=== PATIENT | male | born 1950 | race Caucasian/White ===

== ENCOUNTER 2018-03-14 02:14 | Inpatient (IN) | payer OTHER, MEDICARE ==
[~2018-03-14] VITALS: Ht 170.2 cm; Wt 95.3 kg
[~2018-03-14 02:14] MED LIST: ATENOLOL25 M1 PO; LISINOPRIL-HCT1 EAC2 PO; METFORMIN HCL500 M4 PO
[2018-03-14 11:04] LABS: ABSOLUTE BASOPHIL COUNT 0 /CUMM (0.0-0.2); ABSOLUTE EOSINOPHIL COUNT 0.1 /CUMM (0.0-0.7); ABSOLUTE LYMPH COUNT 0.9 /CUMM (1.2-3.4); ABSOLUTE MONOCYTE COUNT 0.9 /CUMM (0.10-0.60); BASOPHIL % 0.6 % (0.0-2.0); EOSINOPHIL % 2.2 % (0-5); HEMATOCRIT 45.1 % (42-52); MEAN CORPUSCULAR HGB 32.3 PG (27.0-31.0); MEAN CORPUSCULAR HGB CONC 34.8 G/DL (33.0-37.0); MEAN CORPUSCULAR VOLUME 93.1 FL (80.0-94.0); MEAN PLATELET VOLUME 8.6 FL (7.4-10.4); PLATELET COUNT 231 /CUMM (130-400); RBC DISTRIBUTION WIDTH 12.5 % (11.5-14.5); RED BLOOD CELL CT 4.85 /CUMM (4.70-6.10); WHITE BLOOD CELL COUNT 5.9 /CUMM (4.8-10.8)
--- NOTE | 2018-03-14 16:56 | Admission Core Measures ---
Acute Coronary Syndrome (CM) ACS Core Measures Acute Coronary Syndrome Diagnosis Yes Congestive Heart Failure (NEW) CHF Core Measures Congestive Heart Failure Diagnosis Yes Cerebrovascular Accident (NEW) CVA Core Measures CVA/TIA Diagnosis Yes Venous Thromboembolism VTE Core Doug (View Protocol) VTE Risk Factors Surgery No Mechanical VTE Prophylaxis d/t N/A MechProphylax Ordered No VTE Pharm Prophylaxis d/t NA PharmProphylax ordered Problem List As ranked by this Provider includes Assessment & Plan 1. Colon cancer HOME MEDS Home Med List Atenolol 25 MG TABLET 1 TAB PO DAILY HTN (Reported) Lisinopril/Hydrochlorothiazide (Lisinopril-Hctz 10-12.5 MG Tab) 10 MG-12.5 MG TABLET 1 TAB PO DAILY HTN (Reported) Metformin HCl (Metformin HCl ER) 500 MG TAB.ER.24H 1 TAB PO DAILY DM ( Reported)
[2018-03-14 18:30] VITALS: BP 114/62
--- NOTE | 2018-03-14 19:45 | PN- General Surgery ---
Subjective Subjective: POC feeling well, pain well controlled, awating some clear liquids, some belching, no n/v. no flatus/bm. no oob. Objective Vital Signs and I&Os Vital Signs Date Time Temp Pulse Resp B/P B/P Pulse O2 O2 Flow FiO2 Mean Ox Delivery Rate 03/14 1830 97.6 63 18 114/62 92 Nasal 2.0L Cannula Physical Exam: gen- nad card0 s1s2 rrr pulm- ctab abd- soft, ttp, distended, incisions cdi w glue, island dressing on midline- scant bloody staining. quiet bs ext- calves soft nt bl, alps on Assessment/Plan Assessment/Plan A- POD0 sp robotic LAR for colon ca, stable. P- eras clrs, ?aat tomorrow ivf at 73 [address], richie 6am neurontin atc po tylenol atc prn po oxy, iv morphine for breakthrough hep sq, alps oob, ambualte ist, titrate o2 off am labs dc planning Core Measures Venous Thromboembolism VTE Risk Factors Surgery No Mechanical VTE Prophylaxis d/t N/A MechProphylax Ordered No VTE Pharm Prophylaxis d/t NA PharmProphylax ordered
[2018-03-14 20:00] VITALS: BP 136/70
[2018-03-14 20:30] VITALS: BP 116/70
[2018-03-14 22:30] VITALS: BP 136/74
[2018-03-15 00:32] VITALS: BP 110/70
[2018-03-15 06:06] VITALS: BP 110/72
[2018-03-15 07:26] VITALS: BP 130/80
--- NOTE | 2018-03-15 07:34 | PN- General Surgery ---
Surgical Brief Attending Note Brief Attending Note: Patient with no complaints this morning She is passing flatus and has been tolerating clears Abdomen is soft Vital signs were stable overnight Labs not back yet Impression: Looks well postop day 1 from robotic colon resection Plan: Progress per PILAR Jefferson out, DC IV fluids, full liquid diet this morning and advance diet as tolerated to a low fiber
[2018-03-15 08:50] LABS: ABSOLUTE BASOPHIL COUNT 0 /CUMM (0.0-0.2); ABSOLUTE EOSINOPHIL COUNT 0 /CUMM (0.0-0.7); ABSOLUTE LYMPH COUNT 0.4 /CUMM (1.2-3.4); BASOPHIL % 0.1 % (0.0-2.0); EOSINOPHIL % 0 % (0-5)
[2018-03-15 08:55] LABS: ABSOLUTE GRANULOCYTE CT 8.2 /CUMM (1.4-6.5); ABSOLUTE MONOCYTE COUNT 0.9 /CUMM (0.10-0.60); MEAN CORPUSCULAR HGB 32.5 PG (27.0-31.0); MEAN CORPUSCULAR HGB CONC 34.7 G/DL (33.0-37.0); MEAN CORPUSCULAR VOLUME 93.8 FL (80.0-94.0); MEAN PLATELET VOLUME 10.1 FL (7.4-10.4); PLATELET COUNT 185 /CUMM (130-400); RBC DISTRIBUTION WIDTH 12.5 % (11.5-14.5); RED BLOOD CELL CT 4.13 /CUMM (4.70-6.10)
[2018-03-15 08:56] LABS: WHITE BLOOD CELL COUNT 9.6 /CUMM (4.8-10.8)
[2018-03-15 08:57] LABS: HEMATOCRIT 38.8 % (42-52)
[2018-03-15 09:14] LABS: GRANULOCYTE % 85.7 % (42.2-75.2)
--- NOTE | 2018-03-15 09:50 | Patient Discharge Instructions ---
Discharge Instructions General Discharge Information You were seen/treated for: Colon cancer You had these procedures: Robotic lower anterior rescetion on 03/15/18 Watch for these problems: Increased pain, distenstion, fever > 101.3, chills, nausea, vomiting, redness, swelling, drainage from your incisions Call Surgeon to remove: Norma No bath, but you may shower: Yes Other wound care: Keep incisions clean an dry Ok to remove dressing in 2 days No ointments or lotions on incisions Special Instructions: Call to schedule a follow up appointment with Dr. Lorenzo in 10-14 days or sooner with concerns. Diet Continue normal diet: No Recommended Diet: Low Residue Activity Full Activity/No Limits: No Activity Self Limited: Yes Pounds, do NOT lift more than: 10 (x 4 weeks) Other activity limits: No heavy lifting or strenous activity for 4 weeks Acute Coronary Syndrome Inclusion Criteria At DC or during hospital stay patient has or had the following: ACS DIAGNOSIS No Discharge Core Measures Meds if any: Prescribed or Continued at Discharge Meds if any: NOT Prescribed or Continued at Discharge Congestive Heart Failure Inclusion Criteria At DC or during hospital stay patient has or had the following: CHF DIAGNOSIS No Discharge Core Measures Meds if any: Prescribed or Continued at Discharge Meds if any: NOT Prescribed or Continued at Discharge Cerebrovascular accident Inclusion Criteria At DC or during hospital stay patient has or had the following: CVA/TIA Diagnosis No Discharge Core Measures Meds if any: Prescribed or Continued at Discharge Meds if any: NOT Prescribed or Continued at Discharge Venous thromboembolism Inclusion Criteria VTE Diagnosis No VTE Type NONE VTE Confirmed by (Test) NONE Discharge Core Measures - Per Current guidelines, there needs to be overlap - treatment for the first 5 days of Warfarin therapy. - If discharged on Warfarin prior to 5 days of - overlap therapy, the patient will need to be - assessed for post discharge needs including - *Post discharge parental anticoagulation - *Warfarin and/or parental anticoagulation education - *Follow up date to check INR post discharge At least 5 days overlap therapy as Inpatient No Meds if any: Prescribed or Continued at Discharge Note: Overlap Therapy is Warfarin and Anticoagulant Meds if any: NOT Prescribed or Continued at Discharge
--- NOTE | 2018-03-15 09:54 | Surg Short-stay <48hrs Dis Sum ---
Visit Information Visit Dates Admission Date: 03/14/18 Discharge Date: 03/16/18 Surgical Short Stay DC Summary Admission Diagnosis: Colon cancer Final Diagnosis: S/p robotic lower anterior resection Procedure(s): Robotic LAR on 03/14/18 Summary/Significant Findings: Patient presented for an elective robotic lower anterior resection for sigmoid colon cancer with Dr. Lorenzo. ERAS protocol initiated preop and followed postop. Diet was advanced and tolerated with return or bowel function. He voided spontanously and pain was controlled with oral analgesics. He is medically stable for discharge. Condition at Discharge: Stable Discharge Disposition: home or self care Discharge instructions provided to patient/family: Yes Post discharge follow-up plan: 10-[address] Lorenzo Copies to: Yuly BLACKBURN,Yonis Villanueva
[2018-03-15 11:05] VITALS: BP 126/80
[2018-03-15 13:50] VITALS: BP 120/60
--- NOTE | 2018-03-15 14:10 | Operative Report ---
Operative/Inv Procedure Report Surgery Date: 03/14/18 Name of Procedure: 1. Robototic low anterior resection 2. Rigid sigmoidoscopy to assess anastomosis integrity Pre-Operative Diagnosis: Sigmoid colon cancer Post-Operative Diagnosis: Sigmoid colon cancer Estimated Blood Loss: less than 50ml Surgeon/Toll Line Inspector: Daren Lorenzo Jr., DO Anesthesia: general endotracheal tube, block Monitors: Per routine Drains: None Specimens: 1. Rectosigmoid 2. Stapler doughnut as proximal surgical margin 3. The stapler doughnut as distal surgical margin Complications: None Condition: Good Operative Indication: This is a 67-year-old gentleman has had colonoscopies found to have a sigmoid colon cancer. This was I see proven to be an adenocarcinoma. A tattoo was performed at the time of the colonoscopy. During his preop metastatic workup he was noted to have a mass in the left kidney. He was referred to both oncology and urology. It was felt this is likely a second primary cancer. We initially discussed doing a combined urologic and colorectal procedure. After careful consideration discussion with the patient and his oncologist, sided to take a staged approach and addressed the colon cancer first Operative/Procedure Note Note: On the day before his procedure he did a bowel prep at home including oral laxatives and oral antibiotics. He presented to [facility] and in the holding area received premedication as part of our ERAS protocol. He was taken to the operating room he received IV antibiotics. He was placed in the supine position on the operating room table. He underwent induction of general anesthesia placement of endotracheal tube and Jefferson catheter. He underwent bilateral tap blocks at the anesthesia department. Converted to lithotomy position in Charles stirru and secured to the bed with both arms tucked. The abdomen was prepped and draped in usual fashion. We gained access to the abdominal cavity using a Veress needle technique. The Veress needle was inserted in the midclavicular line just subcostal on the left in the abdomen was insufflated to 15 mmHg. The robotic ports were then placed in a line drawn between the xiphoid process in the right lower quadrant. The #123 ports were 8 mm ports. The #4 port was a 12 mm port. In addition an 8 mm Versaport was placed in right lower quadrant for the school health assistant port. Laparoscopic expiration of the abdominal cavity was performed I could see the tattoo in the mid sigmoid colon and there was no other abnormalities noted. The patient was placed in Trendelenburg right side down and then the robot was docked. There was some abnormal adhesions between the sigmoid colon and the left lower quadrant taken down flexure cautery and by sharp dissection to reestablish normal anatomic relationships. The colon was grasped and elevated to his anterior abdominal wall incised peritoneum at the sacral promontory to the right of the rectosigmoid. I entered the posterior rectal avascular space and did a medial lateral dissection until the left ureter and iliac vessels were identified. I developed a space posteriorly till I was about to the midportion of the rectum. The lateral [place] were then partly taken down on the right and on the left using the vessel sealer. He inferior mesenteric vascular pedicle was identified. The vessels were then skeletonized partly with electrocautery and partly with a vessel sealer. The pedicle was fairly large so a robotic PAOLO stapler with white load was used to divide the pedicle. The pedicle was divided beyond the takeoff of the left colic vessels and the divided vascular structures were completely hemostatic. Next I took down the white line of Toldt's with a robotic jerod working retrograde back towards the splenic flexure but I did not need to completely mobilize the flexure. I chose my distal site of transection at the rectosigmoid the mesorectum was cleared here with combination electrocautery and robotic vessel sealing. Once the rectal wall was exposed a robotic PAOLO stapler was used to divide the bowel. This was a 45 mm blue loaded stapler. At this point the end of the transected bowel was grasped the pneumoperitoneum was let down and the robot was undocked. The median extraction incision just infraumbilically this which was about 6 cm in length. A wound protector was placed through the incision and the bowel was easily extracted through this wound protector. I chose my proximal site of transection cleared the mesentery here with electrocautery and the larger vessels were ligated and divided with 2-0 Vicryl suture. I sharply divided the bowel and the specimen was removed from the field. A stitch was placed on the distal. A 28 EEA stapler was chosen for the anastomosis a hand sewn pursestring was performed with 2-0 Prolene suture. The anvil of the EEA stapler was placed into the lumen of the bowel and the pursestring was tied snugly around the PEG of the anvil. The bowel was reduced back into the abdominal cavity Was placed on the wound protector. The abdomen was reinsufflated 50 mmHg and then once again the bowel swept out of the pelvis. The EEA sizers then the EEA stapler passed transanally. Once the stapler was in the appropriate position the spike was advanced and the 2 ends of the stapling device were mated. He made sure there was no twisting in the colon or the colon mesentery. The stapler was completely closed and allowed to settle for 30 seconds. Table was armed, fired, opened and retrieved. The pelvis was filled with sterile saline and the bowel was gently occluded proximal to the anastomosis. Sigmoidoscopy was performed and there was no air leak at the anastomosis . Staple line appeared sound without bleeding. The fluid was aspirated out of the pelvis. Once again the pneumoperitoneum was let down. Prepared for closure. The fascia at the extraction site was closed with 0 PDS non-looped suture. Subcutaneous at this incision was copiously irrigated with sterile saline and then closed with skin rachel. The incisions at the ports were closed with subcuticular 4-0 Monocryl the skin glue. A dry sterile dressing was placed over the extraction incision. The procedure was concluded the patient was ectopy in the operating room after being converted to supine. The patient tolerated the procedure well taken recovery area in good condition. At the end this operational needle sponges and measurements were accounted for. Findings: Tumor in mid sigmoid colon Discharge Disposition: Same Day Admissions Additional Comments: The pathological specimens were taken to the pathology department by myself. Pathology from was oriented 2 specimens. I requested that genetic testing be performed on the specimen CC: Darron BLACKBURN,Jeff; Robby BLACKBURN,Pedrito Mcclelland; Ariadna BLACKBURN,Yonis Mcmanus
[2018-03-15 21:56] VITALS: BP 118/60
[2018-03-16 05:59] VITALS: BP 124/74
[2018-03-16] MEDS ORDERED: TRAMADOL HCL50 M1 PO (07:38)
[2018-03-16] MEDS ORDERED: TYLENOL EXTRA500 M2 PO (07:38)
--- NOTE | 2018-03-16 07:39 | PN- General Surgery ---
See Addendum Subjective Subjective: Tolerating low residue diet. No nausea. Passing flatus and +bm yesterday. Out of bed without difficulty. No dizziness. No shortness of breath. No chest pains. Voiding well. Anticipates discharge to home today. He wants to try to stick with tylenol for pain control, but admits he has tramadol at home if needed for pain. Objective Vital Signs and I&Os Vital Signs Date Time Temp Pulse Resp B/P B/P Pulse O2 O2 Flow FiO2 Mean Ox Delivery Rate 03/16 0559 98.0 60 20 124/74 92 Room Air 03/15 2156 98.1 83 20 118/60 93 03/15 1350 97.7 57 20 120/60 92 Room Air 03/15 1105 98.5 83 18 126/80 92 Room Air 03/15 0800 93 Nasal 2.0L Cannula 03/15 739 130/80 03/15 0739 130/80 Intake & Output 03/16 0800 03/16 0000 03/15 1600 03/15 0803/15 0000 03/14 1600 Intake Total 800 1240 1080 Output Total 500 500 550 Balance 800 -500 740 530 Intake, IV 800 600 Intake, Oral 800 440 480 Number 2 Bowel Movements Output, Urine 500 500 550 Physical Exam: General - alert & oriented x 3. comfortable. no acute distress. Lungs - clear bilaterally. no w/r/r Cardiac - s1s2. reg. Abdomen - soft. midline dressing changed. rachel intact. no erythema or exudates. expected geetha-incisional tenderness. Extremities - warm bilaterally. no c/c/e. calves soft and nontender b/l. Current Medications: Current Medications Sig/Maria Ines Start time Last Medication Dose Route Stop Time Status Admin Acetaminophen 1,000 MG .STK-MED ONE 03/15 1954 DC PO 03/15 1955 Acetaminophen 1,000 MG .STK-MED ONE 03/15 124 DC PO 03/15 1249 Acetaminophen 1,000 MG TID 03/14 2100 AC 03/15 PO 1954 Alvimopan 12 MG Q12H 03/14 2200 AC 03/15 PO 1954 Atenolol 25 MG DAILY 03/15 09 AC 03/15 PO 0739 Cefazolin Sodium 2 GM IQ8 03/15 0000 DC 03/15 N/A 1 UNIT IV 03/15 08 0851 Dextrose/Sodium 1,000 ML .[id number] 03/14 173 DC 03/15 Chloride IV 0336 Gabapentin 300 MG BID 03/14 2100 AC 03/15 PO 195 Heparin Sodium 5,000 UNIT Q8 03/14 2200 AC 03/16 (Porcine) SC 0530 Hydrochlorothiazide 12.5 MG DAILY 03/15 900 AC 03/15 PO 0739 Insulin Aspart 0 AT BEDTIME 03/14 2100 AC SC Insulin Aspart 0 TIDAC 03/14 1700 AC 03/15 SC 1748 Lisinopril 10 MG DAILY 03/15 900 AC 03/15 PO 0739 Metronidazole 500 MG IQ8 03/15 0000 DC 03/15 N/A 1 UNIT IV 03/15 859 0742 Morphine Sulfate 2 MG Q2-3 HRS NEEDED.. 03/14 173 AC IV Ondansetron HCl 4 MG Q6P PRN 03/14 173 AC 03/15 IV 1236 Oxycodone HCl 5 MG Q4 HRS NEEDED PRN 03/14 1730 AC 03/15 PO 195 Oxycodone HCl 10 MG Q4 HRS NEEDED PRN 03/14 173 AC 03/16 PO 0530 Patient Medication 1 ED ONE ONE 03/15 1815 DC 03/15 Teaching ED 03/15 181 1849 Results Last 48 Hours of Labs: Laboratory Tests 03/15 03/14 0605 1051 Chemistry Sodium (137 - 145 mmol/L) 137 140 Potassium (3.5 - 5.1 mmol/L) 3.8 5.0 Chloride (98 - 107 mmol/L) 99 97 L Carbon Dioxide (22 - 30 mmol/L) 26 31 H Anion Gap (5 - 16) 12 12 BUN (9 - 20 mg/dL) 18 27 H Creatinine (0.7 - 1.2 mg/dL) 0.8 1.1 Estimated GFR (>60 ml/min) > 60 > 60 BUN/Creatinine Ratio (7 - 25 %) 22.5 24.5 Glucose (65 - 99 mg/dL) 105 H Calcium (8.4 - 10.2 mg/dL) 9.2 Hematology CBC w Diff NO MAN DIFF REQ NO MAN DIFF REQ WBC (4.8 - 10.8 /CUMM) 9.6 5.9 RBC (4.70 - 6.10 /CUMM) 4.13 L 4.85 Hgb (14.0 - 18.0 G/DL) 13.4 L 15.7 Hct (42 - 52 %) 38.8 L 45.1 MCV (80.0 - 94.0 FL) 93.8 93.1 MCH (27.0 - 31.0 PG) 32.5 H 32.3 H MCHC (33.0 - 37.0 G/DL) 34.7 34.8 RDW (11.5 - 14.5 %) 12.5 12.5 Plt Count (130 - 400 /CUMM) 185 231 MPV (7.4 - 10.4 FL) 10.1 8.6 Gran % (42.2 - 75.2 %) 85.7 H 67.0 Lymphocytes % (20.5 - 51.1 %) 4.5 L 15.6 L Monocytes % (1.7 - 9.3 %) 9.7 H 14.6 H Eosinophils % (0 - 5 %) 0 2.2 Basophils % (0.0 - 2.0 %) 0.1 0.6 Absolute Granulocytes (1.4 - 6.5 /CUMM) 8.2 H 4.0 Absolute Lymphocytes (1.2 - 3.4 /CUMM) 0.4 L 0.9 L Absolute Monocytes (0.10 - 0.60 /CUMM) 0.9 H 0.9 H Absolute Eosinophils (0.0 - 0.7 /CUMM) 0 0.1 Absolute Basophils (0.0 - 0.2 /CUMM) 0 0 Assessment/Plan Assessment/Plan This 67 year old male with hx dm, htn, rcc, is POD#2 s/p robotic LAR for colon ca, stable tolerating low residue diet tylenol / tramadol at home if needed for pain oob/ambulating well hep sc - dvt ppx midline dressing changed d/c home today will d/w Core Measures Venous Thromboembolism VTE Risk Factors Surgery No Mechanical VTE Prophylaxis d/t N/A MechProphylax Ordered No VTE Pharm Prophylaxis d/t NA PharmProphylax ordered
[2018-03-16 08:27] VITALS: BP 124/74
== END 2018-03-16 12:44 | DRG 331 ==
LOC: 2NA 02:14 → SDA 02:14 → ENRESERV 16:57 → ENTRNSPT 17:15 → EDTRNSPT 17:18 → EDTRNSPTSTS 17:18 → 2NA 17:24 → CMPTRNSPT 17:35 → EDTRNSPT 17:35 → ENPENDDIS 03-16 07:53 → 2NA 03-16 12:44
PROVIDERS: Colon & Rectal Surgery; Physician Assistant Surgical
PROC: 0DTN4ZZ Resection of Sigmoid Colon, Percutaneous Endoscopic Approach (ICD-10-PCS; principal; 2018-03-14)
PROC: 8E0W4CZ Robotic Assisted Procedure of Trunk Region, Percutaneous Endoscopic Approach (ICD-10-PCS; 2018-03-14)
PROC: 0DJD8ZZ Inspection of Lower Intestinal Tract, Via Natural or Artificial Opening Endoscopic (ICD-10-PCS; 2018-03-14)
DX: C18.7 Malignant neoplasm of sigmoid colon (principal); E11.8 Type 2 diabetes mellitus with unspecified complications; J44.9 Chronic obstructive pulmonary disease, unspecified; I10 Essential (primary) hypertension; Z79.84 Long term (current) use of oral hypoglycemic drugs; I71.4 Abdominal aortic aneurysm, without rupture; N28.89 Other specified disorders of kidney and ureter; R91.8 Other nonspecific abnormal finding of lung field; N40.0 Benign prostatic hyperplasia without lower urinary tract symptoms; K44.9 Diaphragmatic hernia without obstruction or gangrene
CPT/HCPCS: 2NASP; 36415; 36592; 82436; 87086; C9290; C9399; J0131; J0690; J1100; J1644; J1885; J2405; J7042